=== PATIENT | female | born 1940 | race Caucasian/White ===

== ENCOUNTER 2024-09-26 13:58 | Emergency (ER) | payer MEDICARE, SELFPAY ==
--- OUTSIDE RECORDS SUMMARY | 2022-05-04 06:53 | XMS_ITS | Continuity of Care Document ---
Author Organization [facility] Address [address] [address] Phone Care Team Providers Care Outreach Liaison Name Role Phone Gary Fierro DO Unavailable Unavailable Advance Directives Directive Yes / No Effective Date File Name No Information Encounters Encounter Description Practice Location Reason(s) For Visit Diagnoses Date Provider [facility], [address] [place] [address], [id number], [place] tel:[phone] [address] [place] [address] No Information 2022 Vadim Vega. [address] [place] [address], [id number], [place]. tel:[phone] Family History Family Member Type Diagnosis Age At Onset No Information Payers Payer name Insurance type Covered libertarian ID Authoriza tion(s) No Information Social History Type Description Quantity Date Captured Comments Sex Female Smoking Status No Information Chief Complaint And Reason For Visit No Information History Of Present Illness Encounter Date Complaint History Of Prese nt Illness No Information Instructions Date Instruction Additional Infor mation No Information Assessments Type Assessment Date No Information
--- NOTE | ~2024-09-26 | US_ITS ---
CLINICAL HISTORY: calf tenderness, recent sx, decrsd phys actvty Venous duplex ultrasound bilateral lower extremity Comparison: None provided Findings: The visualized deep veins are fully compressible with normal Doppler color flow and spectral tracings. No popliteal cyst. IMPRESSION: 1. Negative for bilateral lower extremity deep vein thrombosis. This document has been electronically signed by: Annita Khan MD on 09/26/2024 20:05:48
--- NOTE | ~2024-09-26 | XR_ITS ---
CLINICAL HISTORY: recent surgery with pain and swelling 1 view pelvis Comparison: None provided Findings: No acute fracture. No dislocation. Previous internal fixation of right femoral neck. Mild degenerative changes bilateral hips and at the symphysis pubis Diffuse demineralization. Right-sided pelvic small round calcification suggestive of phleboliths. IMPRESSION: 1. No acute findings. This document has been electronically signed by: Annita Khan MD on 09/26/2024 18:50:53
--- NOTE | ~2024-09-26 | XR_ITS ---
CLINICAL HISTORY: pain swelling 2 view right femur Comparison: None provided Findings: Previous internal fixation of right femoral neck. Oblique nondisplaced internally fixated distal femoral shaft fracture with multiple orthopedic screws and lateral side plate. No dislocation at the knee or at the hip. Degenerative changes in the knee. No erosions. Diffuse demineralization. Very small knee joint effusion. IMPRESSION: 1. Internally fixated nondisplaced oblique distal femoral shaft fracture. 2. Previous internal fixation right femoral neck. 3. Degenerative changes, diffuse demineralization and very small knee joint effusion. This document has been electronically signed by: Annita Khan MD on 09/26/2024 18:48:48
[2024-09-26 14:12] VITALS: BP 128/60; PULSE 80; RESP 16; TEMP 36.2; O2SAT 96; BMI 28.2
--- NOTE | 2024-09-26 14:16 | PC.NURSE ---
Pt BIBA from rehab s/p right hip replacement, per EMS pt has had increased pain and swelling to RLE. Pt is a/o x 1-2, hx dementia. Scabbed over incision noted to right hip.
--- NOTE | 2024-09-26 14:26 | ED_ITS ---
HPI - General Adult General Chief complaint: General Medical Stated complaint: R THIGH PAIN Time Seen by Provider: 09/26/24 14:09 Source: EMS, RN notes reviewed and old records reviewed Mode of arrival: EMS Limitations: other (Dementia, confusion) History of Present Illness HPI narrative: 84-year-old female with a history of dementia presents via EMS from the shelter where she is a resident with reported warm, swollen right lower extremity. Concern for potential DVT after recent hip fracture repair. Patient denies pain. She is able to bend both of her legs equally at the knee. No further information is able to be obtained secondary to patient's dementia. Daughter at bedside, explains patient has spiral femoral fracture of the right side on 09/03/2024 had surgery done at [facility]. Patient has been in [facility] rehab since 09/09/2024. Patient was doing better and working on ambulation however today during PT right knee with pain, warmth, swelling, difficulty bearing weight. Patient denies chest pain, shortness of breath, nausea, vomiting, abdominal pain, black/tarry stool, urinary symptoms. MD complaint: R hip pain, R knee pain with warmth and swelling Related Data Previous Rx's ?Medication ?Instructions ?Recorded cephalexin 500 mg capsule 500 mg PO Q12H 10 days #20 c aps 09/26/24 Allergies Allergy/AdvReac Type Severity Reaction Status Date / Time No Known Allergies Allergy Verified 09/26/24 14:15 Review of Systems 2 Review of Systems: As per HPI, full review of systems performed and negative but for the above mentioned pertinent positives and negatives. [facility] Past Medical History [facility] Narrative: Lives in a shelter, dementia, osteoporosis and vertigo history Source: old records reviewed and nursing notes reviewed Physical Exam ED Exam Exam: GENERAL: Chronically ill-appearing, conversant, no acute distress. SKIN: Normal skin color for ethnicity, warm, dry, no rashes noted. HEENT: Normocephalic, atraumatic, no stridor, posterior oropharynx nonerythematous, EOMI. NECK: Soft, supple, full ROM, midline structures nontender, no step-offs, no deformities, no lymphadenopathy. CHEST: Heart regular rate and rhythm, no murmurs, symmetric chest rise and fall. PULMONARY: Clear to auscultation bilaterally, no labored breathing, no wheezes/rhales/ rhonchi. ABDOMINAL: Soft, nondistended, nontender, positive bowel sounds in all quadrants. : Deferred. MUSCULOSKELETAL: Normal tone, full range of motion, no deformities, no peripheral edema. NEURO: Alert and oriented to person, CN II through XII intact, no focal neurologic deficits. PSYCHIATRIC: Flat affect, fluid speech, appropriate demeanor. Vital Signs: Vital Signs - 24 hr 09/26/24 14:12 Temperature 97.1 F Pulse Rate 80 Respiratory Rate 16 Blood Pressure 128/60 Pulse Oximetry 96 Oxygen Delivery Method Room Air BMI result Body Mass Index 28.2 GENERAL APPEARANCE: ?AxOx1, pleasantly confused, oriented to self only, no acute distress. HEENT: ?NC, AT. MMM. EOMI, clear conjunctiva, oropharynx clear. NECK: ?Supple without lymphadenopathy.? No stiffness or restricted ROM. HEART:? Normal rate and regular rhythm, normal S1/S2, no m/r/g LUNGS:? CTAB, moving air well. No crackles or wheezes are heard. ABDOMEN: ?Soft, nontender, nondistended with good bowel sounds heard. BACK: No CVAT, no obvious deformity. EXTREMITIES: ?Without cyanosis, clubbing. R hip and thigh with well-approximated healing linear incision, without bleeding, exudates, no erythema or warmth along the scar. Right knee with diffuse tenderness to palpation, medial and popliteal edema, mild warmth felt of the right knee, no erythema, no pitting edema of distal extremity, pain with ROM extension due to pain. B/L calf tenderness to palpation NEUROLOGICAL: ?Grossly nonfocal. Alert and oriented, moving all 4 extremities. Patient unable to bear weight on right leg due to pain. SEE PHOTOS Skin: ?Warm and dry without any rash. Medications Administered Discontinued Medications Generic Name Dose Route Start Last Admin Trade Name Freq PRN Reason Stop Dose Admin Acetaminophen 975 mg 09/26/24 19:36 09/26/24 19:41 Acetaminophen 325 Mg Tablet PO 09/26/24 19:37 975 mg ONCE ONE Administration Cephalexin HCl 500 mg 09/26/24 20:51 09/26/24 21:08 Cephalexin 500 Mg Capsule PO 09/26/24 20:52 500 mg ONCE ONE Administration Medical Decision Making Medical Decision Making MDM Narrative: 84-year-old female with a history of dementia presenting with right lower extremity pain, swelling and redness concern for potential DVT. Differential diagnosis includes postoperative pain, cellulitis, DVT, other vascular injury, new fracture, among others. Differential Diagnosis Differential Diagnoses: The differential diagnosis associated with the presentation includes (as above) Lab Data 09/26/24 18:24 09/26/24 18:24 Labs: Lab Results 09/26/24 Range/Units 18:24 WBC 7.1 (4.8-10.8) X10*3/uL RBC 3.57 L (4.20-5.50) X10*6/uL Hgb 10.9 L (12.0-16.0) g/dl Hct 33.0 L (37.0-47.0) % MCV 92.4 (80.0-98.0) fL MCH 30.5 (27.0-33.0) pg MCHC 33.0 (31.0-35.0) g/dl RDW 14.2 (11.0-16.0) % Plt Count 389 (160-400) X10*3/uL MPV 9.5 (9.4-12.3) fL Immature Gran % (Auto) 0.3 (0.0-0.4) % Neut % (Auto) 55.4 (45-73) % Lymph % (Auto) 27.6 (20-40) % Bay % (Auto) 10.7 (2-11) % Eos % (Auto) 5.4 H (0-4) % Baso % (Auto) 0.6 (0-2) % Lymph # (Auto) 2.0 (1.2-4.9) X10*3/uL Bay # (Auto) 0.8 (0.1-1.2) X10*3/uL Eos # (Auto) 0.4 (0.0-0.4) X10*3/uL Baso # (Auto) 0.0 (0.0-0.2) X10*3/uL Abs Immat Gran (auto) 0.02 (0.00-0.03) X10*3/uL Absolute Neuts (auto) 3.9 (2.0-8.3) x10*3/uL Absolute Nucleated RBC 0.000 (0.0-0.012) X10*3/uL Nucleated RBC % (auto) 0.0 (0.0-0.2) /100WBC Sodium 142 (135-145) mmol/L Potassium 4.4 (3.3-5.1) mmol/L Chloride 109 H (96-108) mmol/L Carbon Dioxide 27 (22-29) mmol/L Anion Gap 10 L (12-20) BUN 22 H (9-16) mg/dL Creatinine 0.70 (0.5-1.4) mg/dL Estim Creat Clear Calc 62.4 Estimated GFR > 60 Random Glucose 99 (60-115) mg/dL Calcium 8.6 (8.4-10.2) mg/dL Magnesium 2.3 (1.6-2.6) mg/dL Total Bilirubin 0.7 (0.0-1.0) mg/dL AST 26 (5-31) U/L ALT 14 (0-31) U/L Alkaline Phosphatase 123 H (39-117) U/L Total Protein 6.8 (6.5-8.0) g/dL Albumin 3.5 (3.5-5.0) g/dL Discharge Plan Discharge Clinical Impression: Cellulitis of right thigh Patient Disposition: Xfer SNF Instructions: Cellulitis (ED) Additional Instructions: Keflex for 10 days, 4 times a day. Return to the ER with new or worsening swelling, redness, pain despite antibiotics. Prescriptions: New cephalexin 500 mg capsule 500 mg PO Q12H 10 Days Qty: 20 0RF Interventions: ED Discharge Assessment Last Done: 09/27/24 00:19 Discharge Date/Time: 09/27/24 00:20 Print Language: [place]an
--- OUTSIDE RECORDS SUMMARY | 2024-09-26 15:07 | XMS_ITS | Encounter Summary ---
Author Organization [facility] Address [address] [place] [address] Care Team Providers Care Public Health Microbiologist Name Role Phone Thalia Marquez MD Primary Care Provider [phone] Encounter Details Date Type Department Care Team (Late st Contact Info) Description 09/22/2024 Lab Requisition [facility] - Main Lab [address] [place] [address] Thalia Marquez MD [address] [place] [id number] Essential (primary) hypertension; Alzheimer's disease, unspecified (CODE) ([facility] V24, [facility] V28) Social History Tobacco Use Types Packs/Day Years Used Date Smoking Tobacco: Never Smokeless Tobacco: Never Alcohol Use Standard Drinks/Week Comments Yes 7 (1 standard drink = 0.6 oz pur e alcohol) Interpersonal Safety Answer Date Record ed Physical Abuse 09/03/2024 Verbal Abuse 09/03/2024 Comments Unknown Sex and Gender Information Value Date Recorded Sex Assigned at Not on file Legal Sex Female 11:15 PM EST Gender Identity Not on file Sexual Orientation Not on file documented as of this encounter Plan of Treatment Not on file documented as of this encounter Procedures Procedure Name Priority Date/Time Associated Diagnosis Comments COMPLETE BLOOD COUNT Routine 09/22/2024 10:52 AM EDT Essential (primary) hypertension Alzheimer's disease, unspecified (CODE) ([facility] V24, [facility] V28) BASIC METABOLIC PANEL Routine 09/22/2024 10:52 AM EDT Essential (primary) hypertension Alzheimer's disease, unspecified (CODE) ([facility] V24, [facility] V28) documented in this encounter Results * (ABNORMAL) Basic metabolic panel (09/22/2024 10:52 AM EDT) Sodium 140 133 - 145 mmol/L LAB CHEMISTRY METHOD 09/22/2024 1:37 PM [facility] Potassium 3.8 3.5 - 5.5 mmol/L LAB CHEMISTRY METHOD 09/22/2024 1:37 PM [facility] Chloride 109 96 - 110 mmol/L LAB CHEMISTRY METHOD 09/22/2024 1:37 PM [facility] CO2 24 21 - 32 mmol/L LAB CHEMISTRY METHOD 09/22/2024 1:37 PM [facility] Anion Gap 7 3 - 11 LAB CHEMISTRY METHOD 09/22/2024 1:37 PM [facility] Glucose 107(H) 70 - 100 mg/dL LAB CHEMISTRY METHOD 09/22/2024 1:37 PM [facility] BUN 20 5 - 25 mg/dL LAB CHEMISTRY METHOD 09/22/2024 1:37 PM [facility] Creatinine 0.88 0.50 - 1.10 mg/dL LAB CHEMISTRY METHOD 09/22/2024 1:37 PM [facility] eGFR 64 >=60 mL/min/1. 73m2 LAB CHEMISTRY METHOD 09/22/2024 1:37 PM [facility] Comment:Calculation based on the Chronic Kidney Disease Epidemiology Collaboration (CKD-EPI) equation refit without adjustment for race. BUN/Creatinine Ratio 22.7 LAB CHEMISTRY METHOD 09/22/2024 1:37 PM [facility] Calcium 8.6 8.5 - 10.5 mg/dL LAB CHEMISTRY METHOD 09/22/2024 1:37 PM EDT [facility] Blood Venous blood specimen / Unknown Venipuncture / Unknown 09/22/2024 10:52 AM EDT 09/22/2024 11:34 AM EDT us Thalia Marquez MD LAB BLOOD ORDERABLES Final Resul t [facility] [address] [place] [address], * (ABNORMAL) Complete blood count (09/22/2024 10:52 AM EDT) WBC 8.9 4.8 - 10.8 K/mcL LAB HEMETOLOGY METHOD 09/22/2024 12:55 PM EDT [facility] RBC 3.30(L) 3.80 - 4.80 M/mcL LAB HEMETOLOGY METHOD 09/22/2024 12:55 PM EDT [facility] Hemoglobin 10.0(L) 11.5 - 16.0 g/dL LAB HEMETOLOGY METHOD 09/22/2024 12:55 PM T [facility] Hematocrit 32.2(L) 35.0 - 47.0 % LAB HEMETOLOGY METHOD 09/22/2024 12:55 PM [facility] MCV 97.0 79.0 - 98.0 FL LAB HEMETOLOGY METHOD 09/22/2024 12:55 PM EDT [facility] MCH 30.1 27.0 - 32.0 pcg LAB HEMETOLOGY METHOD 09/22/2024 12:55 PM [facility] MCHC 31.1(L) 32.0 - 37.0 g/dL LAB HEMETOLOGY METHOD 09/22/2024 12:55 PM [facility] RDW 14.7 11.0 - 15.0 % LAB HEMETOLOGY METHOD 09/22/2024 12:55 PM EDT [facility] Platelets 477(H) 130 - 400 K/mcL LAB HEMETOLOGY METHOD 09/22/2024 12:55 PM EDT [facility] MPV 9.9 7.0 - 11.0 FL LAB HEMETOLOGY METHOD 09/22/2024 12:55 PM EDT [facility] NRBC 0.0 <1.0 % LAB HEMETOLOGY METHOD 09/22/2024 12:55 PM EDT [facility] NRBC Absolute 0.00 <0.10 K/mcL LAB HEMETOLOGY METHOD 09/22/2024 12:55 PM EDT [facility] Blood Venous blood specimen / Unknown Venipuncture / Unknown 09/22/2024 10:52 AM EDT 09/22/2024 11:34 AM EDT us Thalia Marquez MD LAB BLOOD ORDERABLES Final Resul t [facility] [address] [place] [address], documented in this encounter Visit Diagnoses Diagnosis Essential (primary) hypertension Unspecified essential hypertension Alzheimer's disease, unspecified (CODE) (CMS/HCC V24, CMS/HCC V28) documented in this encounter Care Teams Public Health Microbiologist Relationship Specialty Start Date End Date Thalia Marquez MD [address] [place] [phone] PCP - General Hospitalist Medicine 09/10/24 documented as of this encounter
--- NOTE | 2024-09-26 17:40 | ED.GENADULT ---
HPI - General Adult General Chief complaint: General Medical Stated complaint: R THIGH PAIN Time Seen by Provider: 09/26/24 14:09 Source: EMS, RN notes reviewed and old records reviewed Mode of arrival: EMS Limitations: other (Dementia, confusion) Related Data Previous Rx's ?Medication ?Instructions ?Recorded cephalexin 500 mg capsule 500 mg PO Q12H 10 days #20 caps 09/26/24 Allergies Allergy/AdvReac Type Severity Reaction Status Date / Time No Known Allergies Allergy Verified 09/26/24 14:15 [facility] Social History Social History Smoked in Last 30 Days: No Advance Directives: Yes Advance Directives Information Provided: Yes Advance Directives on File: No Physical Exam ED Exam Exam: GENERAL: Chronically ill-appearing, conversant, no acute distress. SKIN: Normal skin color for ethnicity, warm, dry, no rashes noted. HEENT: Normocephalic, atraumatic, no stridor, posterior oropharynx nonerythematous, EOMI. NECK: Soft, supple, full ROM, midline structures nontender, no step-offs, no deformities, no lymphadenopathy. CHEST: Heart regular rate and rhythm, no murmurs, symmetric chest rise and fall. PULMONARY: Clear to auscultation bilaterally, no labored breathing, no wheezes/rhales/ rhonchi. ABDOMINAL: Soft, nondistended, nontender, positive bowel sounds in all quadrants. : Deferred. MUSCULOSKELETAL: Normal tone, full range of motion, no deformities, induration surrounding the right lateral thigh incision with minimal erythema surrounding the incision, no crepitus, no blistering, no pain out of proportion to exam, neurovascularly intact distally. NEURO: Alert and oriented to person, CN II through XII intact, no focal neurologic deficits. PSYCHIATRIC: Flat affect, fluid speech, appropriate demeanor. Vital Signs: Vital Signs - 24 hr 09/26/24 14:12 Temperature 97.1 F Pulse Rate 80 Respiratory Rate 16 Blood Pressure 128/60 Pulse Oximetry 96 Oxygen Delivery Method Room Air BMI result Body Mass Index 28.2 Medications Administered Discontinued Medications Generic Name Dose Route Start Last Admin Trade Name Freq PRN Reason Stop Dose Admin Acetaminophen 975 mg 09/26/24 19:36 09/26/24 19:41 Acetaminophen 325 Mg Tablet PO 09/26/24 19:37 975 mg ONCE ONE Administration Medical Decision Making Medical Decision Making [facility] Narrative: Patient presents today with chief complaint of possible infection. Differential diagnosis includes abscess, cellulitis, deep space infection such as fasciitis, bone infection, vascular abnormality, among many others. Findings are not consistent with fasciitis specifically with no crepitus, blistering of the skin, pain out of proportion, hemodynamic instability, poor historical factors. Ultrasound does not show evidence of DVT. White blood cell count is low. She has no fever today. Pain is controlled after acetaminophen. She has some induration surrounding the surgical site with mild erythema. Plan for Keflex p.o. and return to her facility. Return to the ER with any new or worsening symptoms of infection. Differential Diagnosis Differential Diagnoses: The differential diagnosis associated with the presentation includes (As above) Admission/Observation Consideration of admission/observation: Escalation of care including admission/observation considered Lab Data [facility] Lab Attestation statement: I reviewed the patient's lab results. 09/26/24 18:24 09/26/24 18:24 Labs: Lab Results 09/26/24 Range/Units 18:24 WBC 7.1 (4.8-10.8) X10*3/uL RBC 3.57 L (4.20-5.50) X10*6/uL Hgb 10.9 L (12.0-16.0) g/dl Hct 33.0 L (37.0-47.0) % MCV 92.4 (80.0-98.0) fL MCH 30.5 (27.0-33.0) pg MCHC 33.0 (31.0-35.0) g/dl RDW 14.2 (11.0-16.0) % Plt Count 389 (160-400) X10*3/uL MPV 9.5 (9.4-12.3) fL Immature Gran % (Auto) 0.3 (0.0-0.4) % Neut % (Auto) 55.4 (45-73) % Lymph % (Auto) 27.6 (20-40) % [place] % (Auto) 10.7 (2-11) % Eos % (Auto) 5.4 H (0-4) % Baso % (Auto) 0.6 (0-2) % Lymph # (Auto) 2.0 (1.2-4.9) X10*3/uL [place] # (Auto) 0.8 (0.1-1.2) X10*3/uL Eos # (Auto) 0.4 (0.0-0.4) X10*3/uL Baso # (Auto) 0.0 (0.0-0.2) X10*3/uL Abs Immat Gran (auto) 0.02 (0.00-0.03) X10*3/uL Absolute Neuts (auto) 3.9 (2.0-8.3) x10*3/uL Absolute Nucleated RBC 0.000 (0.0-0.012) X10*3/uL Nucleated RBC % (auto) 0.0 (0.0-0.2) /100WBC Sodium 142 (135-145) mmol/L Potassium 4.4 (3.3-5.1) mmol/L Chloride 109 H (96-108) mmol/L Carbon Dioxide 27 (22-29) mmol/L Anion Gap 10 L (12-20) BUN 22 H (9-16) mg/dL Creatinine 0.70 (0.5-1.4) mg/dL Estim Creat Clear Calc 62.4 Estimated GFR > 60 Random Glucose 99 (60-115) mg/dL Calcium 8.6 (8.4-10.2) mg/dL Magnesium 2.3 (1.6-2.6) mg/dL Total Bilirubin 0.7 (0.0-1.0) mg/dL AST 26 (5-31) U/L ALT 14 (0-31) U/L Alkaline Phosphatase 123 H (39-117) U/L Total Protein 6.8 (6.5-8.0) g/dL Albumin 3.5 (3.5-5.0) g/dL Radiology Impression Discussion of test interpretation with radiology: I have reviewed the radiologist's reading. Radiologist Impression: Venous duplex ultrasound bilateral lower extremity Comparison: None provided Findings: The visualized deep veins are fully compressible with normal Doppler color flow and spectral tracings. No popliteal cyst. IMPRESSION: 1. Negative for bilateral lower extremity deep vein thrombosis. 1 view pelvis Comparison: None provided Findings: No acute fracture. No dislocation. Previous internal fixation of right femoral neck. Mild degenerative changes bilateral hips and at the symphysis pubis Diffuse demineralization. Right-sided pelvic small round calcification suggestive of phleboliths. IMPRESSION: 1. No acute findings. This document has been electronically signed by: Annita Khan MD on 09/26/2024 18:50:53 2 view right femur Comparison: None provided Findings: Previous internal fixation of right femoral neck. Oblique nondisplaced internally fixated distal femoral shaft fracture with multiple orthopedic screws and lateral side plate. No dislocation at the knee or at the hip. Degenerative changes in the knee. No erosions. Diffuse demineralization. Very small knee joint effusion. IMPRESSION: 1. Internally fixated nondisplaced oblique distal femoral shaft fracture. 2. Previous internal fixation right femoral neck. 3. Degenerative changes, diffuse demineralization and very small knee joint effusion. This document has been electronically signed by: Annita Khan MD on 09/26/2024 18:48:48 Independent Historian Clinical information obtained from an independent historian. History obtained from or confirmed by: Other (daughter) External Record Review External record reviewed: Outpatient record Prescription Management I considered prescription management with: Antibiotic Chronic Conditions Patient?s care impacted by: Other (Alzheimer's dementia) Discharge Plan Discharge Clinical Impression: Cellulitis of right thigh Patient Disposition: Xfer SNF Instructions: Cellulitis (ED) Additional Instructions: Keflex for 10 days, 4 times a day. Return to the ER with new or worsening swelling, redness, pain despite antibiotics. Prescriptions: New cephalexin 500 mg capsule 500 mg PO Q12H 10 Days Qty: 20 0RF Print Language: Belarusian
[2024-09-26 18:27] LABS: MANUAL DIFF FLAG NO
[2024-09-26 18:31] LABS: Hematocrit 33.0 % (37.0-47.0); Hemoglobin 10.9 g/dl (12.0-16.0); Imm Gran Abs Auto 0.02 X10*3/uL (0.00-0.03); Imm Gran Pct Auto 0.3 % (0.0-0.4); Lymphocytes Absolute Auto 2.0 X10*3/uL (1.2-4.9); Mean Corpuscular HGB Conc 33.0 g/dl (31.0-35.0); Mean Corpuscular Hemoglobin 30.5 pg (27.0-33.0); Mean Corpuscular Volume 92.4 fL (80.0-98.0); NRBC Abs Auto 0.000 X10*3/uL (0.0-0.012); NRBC Pct Auto 0.0 /100WBC (0.0-0.2); Platelet Count 389 X10*3/uL (160-400); Red Blood Count 3.57 X10*6/uL (4.20-5.50); White Blood Count 7.1 X10*3/uL (4.8-10.8)
[2024-09-26 18:41] LABS: Alanine Aminotransferase 14 U/L (0-31); Albumin Level 3.5 g/dL (3.5-5.0); Alkaline Phosphatase 123 U/L (39-117); Anion Gap 10 (12-20); Aspartate Amino Transferase 26 U/L (5-31); Blood Urea Nitrogen 22 mg/dL (9-16); Calcium 8.6 mg/dL (8.4-10.2); Carbon Dioxide 27 mmol/L (22-29); Chloride 109 mmol/L (96-108); Creatinine Clr Calc Pharmacy 62.4; Estimated Glomerular Filt Rate > 60; Magnesium 2.3 mg/dL (1.6-2.6); Potassium 4.4 mmol/L (3.3-5.1); Sodium 142 mmol/L (135-145); Total Protein 6.8 g/dL (6.5-8.0)
[2024-09-26 21:47] VITALS: BP 143/65; PULSE 66; TEMP 36.8; O2SAT 99
--- NOTE | 2024-09-26 22:18 | PC.NURSE ---
attempted to call facility to notify of patients return.no answer form unit at facility. patient waiting for transport.
[2024-09-27 00:19] VITALS: BP 143/65; PULSE 66; RESP 20; TEMP 36.8; O2SAT 99
== END 2024-09-27 00:20 | disposition skilled nursing facility (03) ==
PROVIDERS: Emergency Provider Emergency Medicine
DX: L03.115 Cellulitis of right lower limb (principal); M79.89 Other specified soft tissue disorders; M25.551 Pain in right hip; M25.561 Pain in right knee; R26.2 Difficulty in walking, not elsewhere classified
CPT/HCPCS: 36415; 72170; 73552; 80053; 83735; 85025; 93970; 99284

== ENCOUNTER → 2024-09-26 17:38 | Outpatient (BNV) | payer MEDICARE, OTHER, SELFPAY | PROVIDERS: Emergency Provider Emergency Medicine; Visit Provider Specialist | DX: M79.661 Pain in right lower leg (principal); S72.331D Displaced oblique fracture of shaft of right femur, subsequent encounter for closed fracture with routine healing; M16.0 Bilateral primary osteoarthritis of hip | CPT/HCPCS: 72170; 73552; 93970 ==